=== PATIENT | male | born 1965 | race American Indian/Alaskan Native ===

== ENCOUNTER 2019-01-01 00:41 | Inpatient (IN) | payer OTHER ==
[2019-01-01] MEDS ORDERED: NACL 0.9% 1000 ML 1,000 ML IV ONE ×2 (01:27→03:20)
--- NOTE | 2019-01-01 01:42 | Emergency Department Report ---
ED Altered Mental Status HPI - General Chief Complaint: Altered Mental Status Stated Complaint: AMS Time Seen by Provider: 01/01/19 01:10 Source: EMS Mode of arrival: Stretcher Limitations: Altered Mental Status - History of Present Illness Initial Comments: 53-year-old male with a past medical history of hypertension presents to the hospital with complaints of alteration in mental status. Patient lives in a skilled nursing. Patient states he does not know why he is here. He remembers going to the store and walking back to the skilled nursing. The next thing he remembers is being in the ambulance. EMS reports that patient was confused and altered with improved somewhat in route. Upon arrival patient is oriented to self but states that year is 2017, month is May or June, and he is 45 years old. He does correctly answer that he is at [facility] and that his year is 1964. Patient denies any pain. He denies substance abuse. He states he just alcohol on occasion of last use last night. He denies daily alcohol use. - Related Data Allergies Allergy/AdvReac Type Severity Reaction Status Date / Time No Known Allergies Allergy Verified 01/01/19 03:32 ED Review of Systems ROS: Stated complaint: AMS Other details as noted in HPI Comment: All other systems reviewed and negative ED Past Medical Hx - Past Medical History Previous Medical History?: Yes Hx Hypertension: Yes - Surgical History Past Surgical History?: No - Social History Smoking Status: Current Every Day Smoker Substance Use Type: Alcohol ED Physical Exam - General Limitations: Altered Mental Status - Other Other exam information: General: No limitations, patient is alert in no acute distress Head exam: Atraumatic, normocephalic Eyes exam: Normal appearance, pupils equal reactive to light, extraocular movements intact ENT: Moist mucous membrane Neck exam: Normal inspection, full range of motion, no meningismus nontender Respiratory exam: Clear to auscultation bilateral, no wheezes, rales, crackles Cardiovascular: Tachycardic regular rhythm Abdomen: Soft, nondistended, and nontender, with normal bowel sounds, no rebo und, or guarding Extremity: Full range of motion normal inspection no deformity Back: Normal Inspection, full range of motion, no tenderness Neurologic: Alert, oriented x2, cranial nerves intact, no motor or sensory deficit, [id number]/intact by mild intention tremor noted. Psychiatric: normal affect, normal mood Skin: Warm, dry, intact ED Course Vital Signs 01/01/19 01/01/19 01:04 03:38 Temperature 97.4 F L Pulse Rate 128 H Respiratory 18 20 Rate Blood Pressure 124/80 O2 Sat by Pulse 98 98 Oximetry - Lab Data Result diagrams: 01/01/19 01:20 01/01/19 01:14 Lab Results 01/01/19 01/01/19 01/01/19 Range/Units 01:14 01:20 01:20 WBC (4.5-11.0) K/mm3 RBC (3.65-5.03) M/mm3 Hgb (11.8-15.2) gm/dl Hct (35.5-45.6) % MCV (84-94) fl MCH (28-32) pg MCHC (32-34) % RDW (13.2-15.2) % Plt Count (140-440) K/mm3 Lymph % (Auto) (13.4-35.0) % [place] % (Auto) (0.0-7.3) % Eos % (Auto) (0.0-4.3) % Baso % (Auto) (0.0-1.8) % Lymph # (1.2-5.4) K/mm3 [place] # (0.0-0.8) K/mm3 Eos # (0.0-0.4) K/mm3 Baso # (0.0-0.1) K/mm3 Seg Neutrophils % (40.0-70.0) % Seg Neutrophils # (1.8-7.7) K/mm3 PT 14.3 (12.2-14.9) Sec. INR 1.05 (0.87-1.13) APTT 22.7 L (24.2-36.6) Sec. Sodium 134 L (137-145) mmol/L Potassium 2.8 L* (3.6-5.0) mmol/L Chloride 93.4 L (98-107) mmol/L Carbon Dioxide 18 L (22-30) mmol/L Anion Gap 25 mmol/L BUN 10 (9-20) mg/dL Creatinine 1.3 (0.8-1.5) mg/dL Estimated GFR > 60 ml/min BUN/Creatinine Ratio 8 % Glucose 141 H (75-100) mg/dL Calcium 6.5 L (8.4-10.2) mg/dL Magnesium (1.7-2.3) mg/dL Total Bilirubin 0.60 (0.1-1.2) mg/dL AST 36 (5-40) units/L ALT 15 (7-56) units/L Alkaline Phosphatase 50 (35-129) units/L Total Creatine Kinase (55-170) units/L CK-MB (CK-2) (0.0-4.0) ng/mL CK-MB (CK-2) Rel Index (0-4) Troponin T (0.00-0.029) ng/mL Total Protein 7.2 (6.3-8.2) g/dL Albumin 4.4 (3.9-5) g/dL Albumin/Globulin Ratio 1.6 % TSH 3.010 (0.270-4.200) mlU/mL Free T4 1.62 H (0.76-1.46) ng/dL Urine Color (Yellow) Urine Turbidity (Clear) Urine pH (5.0-7.0) Ur Specific [place] (1.003-1.030) Urine Protein (Negative) mg/dL Urine Glucose (UA) (Negative) mg/dL Urine Ketones (Negative) mg/dL Urine Blood (Negative) Urine Nitrite (Negative) Urine Bilirubin (Negative) Urine Urobilinogen (<2.0) mg/dL Ur Leukocyte Esterase (Negative) Urine WBC (Auto) (0.0-6.0) /HPF Urine RBC (Auto) (0.0-6.0) /HPF U Epithel Cells (Auto) (0-13.0) /HPF Hyaline Casts /LPF Urine Mucus /HPF Salicylates (2.8-20.0) mg/dL Urine Opiates Screen Urine Methadone Screen Acetaminophen (10.0-30.0) ug/mL Ur Barbiturates Screen Ur Phencyclidine Scrn Ur Amphetamines Screen U Benzodiazepines Scrn Urine Cocaine Screen U Marijuana (THC) Screen Drugs of Abuse Note Plasma/Serum Alcohol (0-0.07) % 01/01/19 01/01/19 01/01/19 Range/Units 01:20 01:20 01:20 WBC (4.5-11.0) K/mm3 RBC (3.65-5.03) M/mm3 Hgb (11.8-15.2) gm/dl Hct (35.5-45.6) % MCV (84-94) fl MCH (28-32) pg MCHC (32-34) % RDW (13.2-15.2) % Plt Count (140-440) K/mm3 Lymph % (Auto) (13.4-35.0) % [place] % (Auto) (0.0-7.3) % Eos % (Auto) (0.0-4.3) % Baso % (Auto) (0.0-1.8) % Lymph # (1.2-5.4) K/mm3 [place] # (0.0-0.8) K/mm3 Eos # (0.0-0.4) K/mm3 Baso # (0.0-0.1) K/mm3 Seg Neutrophils % (40.0-70.0) % Seg Neutrophils # (1.8-7.7) K/mm3 PT (12.2-14.9) Sec. INR (0.87-1.13) APTT (24.2-36.6) Sec. Sodium (137-145) mmol/L Potassium (3.6-5.0) mmol/L Chloride (98-107) mmol/L Carbon Dioxide (22-30) mmol/L Anion Gap mmol/L BUN (9-20) mg/dL Creatinine (0.8-1.5) mg/dL Estimated GFR ml/min BUN/Creatinine Ratio % Glucose (75-100) mg/dL Calcium (8.4-10.2) mg/dL Magnesium (1.7-2.3) mg/dL Total Bilirubin (0.1-1.2) mg/dL AST (5-40) units/L ALT (7-56) units/L Alkaline Phosphatase (35-129) units/L Total Creatine Kinase (55-170) units/L CK-MB (CK-2) (0.0-4.0) ng/mL CK-MB (CK-2) Rel Index (0-4) Troponin T (0.00-0.029) ng/mL Total Protein (6.3-8.2) g/dL Albumin (3.9-5) g/dL Albumin/Globulin Ratio % TSH (0.270-4.200) mlU/mL Free T4 (0.76-1.46) ng/dL Urine Color (Yellow) Urine Turbidity (Clear) Urine pH (5.0-7.0) Ur Specific [place] (1.003-1.030) Urine Protein (Negative) mg/dL Urine Glucose (UA) (Negative) mg/dL Urine Ketones (Negative) mg/dL Urine Blood (Negative) Urine Nitrite (Negative) Urine Bilirubin (Negative) Urine Urobilinogen (<2.0) mg/dL Ur Leukocyte Esterase (Negative) Urine WBC (Auto) (0.0-6.0) /HPF Urine RBC (Auto) (0.0-6.0) /HPF U Epithel Cells (Auto) (0-13.0) /HPF Hyaline Casts /LPF Urine Mucus /HPF Salicylates < 0.3 L (2.8-20.0) mg/dL Urine Opiates Screen Urine Methadone Screen Acetaminophen < 5.0 L (10.0-30.0) ug/mL Ur Barbiturates Screen Ur Phencyclidine Scrn Ur Amphetamines Screen U Benzodiazepines Scrn Urine Cocaine Screen U Marijuana (THC) Screen Drugs of Abuse Note Plasma/Serum Alcohol < 0.01 (0-0.07) % 01/01/19 01/01/19 01/01/19 Range/Units 01:20 01:20 01:20 WBC 7.2 (4.5-11.0) K/mm3 RBC 3.51 L (3.65-5.03) M/mm3 Hgb 12.5 (11.8-15.2) gm/dl Hct 36.1 (35.5-45.6) % MCV 103 H (84-94) fl MCH 36 H (28-32) pg MCHC 35 H (32-34) % RDW 14.2 (13.2-15.2) % Plt Count 183 (140-440) K/mm3 Lymph % (Auto) 25.4 (13.4-35.0) % [place] % (Auto) 7.0 (0.0-7.3) % Eos % (Auto) 3.4 (0.0-4.3) % Baso % (Auto) 0.3 (0.0-1.8) % Lymph # 1.8 (1.2-5.4) K/mm3 [place] # 0.5 (0.0-0.8) K/mm3 Eos # 0.2 (0.0-0.4) K/mm3 Baso # 0.0 (0.0-0.1) K/mm3 Seg Neutrophils % 63.9 (40.0-70.0) % Seg Neutrophils # 4.6 (1.8-7.7) K/mm3 PT (12.2-14.9) Sec. INR (0.87-1.13) APTT (24.2-36.6) Sec. Sodium (137-145) mmol/L Potassium (3.6-5.0) mmol/L Chloride (98-107) mmol/L Carbon Dioxide (22-30) mmol/L Anion Gap mmol/L BUN (9-20) mg/dL Creatinine (0.8-1.5) mg/dL Estimated GFR ml/min BUN/Creatinine Ratio % Glucose (75-100) mg/dL Calcium (8.4-10.2) mg/dL Magnesium 0.40 L* (1.7-2.3) mg/dL Total Bilirubin (0.1-1.2) mg/dL AST (5-40) units/L ALT (7-56) units/L Alkaline Phosphatase (35-129) units/L Total Creatine Kinase 413 H (55-170) units/L CK-MB (CK-2) 2.9 (0.0-4.0) ng/mL CK-MB (CK-2) Rel Index 0.7 (0-4) Troponin T < 0.010 (0.00-0.029) ng/mL Total Protein (6.3-8.2) g/dL Albumin (3.9-5) g/dL Albumin/Globulin Ratio % TSH (0.270-4.200) mlU/mL Free T4 (0.76-1.46) ng/dL Urine Color (Yellow) Urine Turbidity (Clear) Urine pH (5.0-7.0) Ur Specific [place] (1.003-1.030) Urine Protein (Negative) mg/dL Urine Glucose (UA) (Negative) mg/dL Urine Ketones (Negative) mg/dL Urine Blood (Negative) Urine Nitrite (Negative) Urine Bilirubin (Negative) Urine Urobilinogen (<2.0) mg/dL Ur Leukocyte Esterase (Negative) Urine WBC (Auto) (0.0-6.0) /HPF Urine RBC (Auto) (0.0-6.0) /HPF U Epithel Cells (Auto) (0-13.0) /HPF Hyaline Casts /LPF Urine Mucus /HPF Salicylates (2.8-20.0) mg/dL Urine Opiates Screen Urine Methadone Screen Acetaminophen (10.0-30.0) ug/mL Ur Barbiturates Screen Ur Phencyclidine Scrn Ur Amphetamines Screen U Benzodiazepines Scrn Urine Cocaine Screen U Marijuana (THC) Screen Drugs of Abuse Note Plasma/Serum Alcohol (0-0.07) % 01/01/19 01/01/19 Range/Units 02:30 02:30 WBC (4.5-11.0) K/mm3 RBC (3.65-5.03) M/mm3 Hgb (11.8-15.2) gm/dl Hct (35.5-45.6) % MCV (84-94) fl MCH (28-32) pg MCHC (32-34) % RDW (13.2-15.2) % Plt Count (140-440) K/mm3 Lymph % (Auto) (13.4-35.0) % [place] % (Auto) (0.0-7.3) % Eos % (Auto) (0.0-4.3) % Baso % (Auto) (0.0-1.8) % Lymph # (1.2-5.4) K/mm3 [place] # (0.0-0.8) K/mm3 Eos # (0.0-0.4) K/mm3 Baso # (0.0-0.1) K/mm3 Seg Neutrophils % (40.0-70.0) % Seg Neutrophils # (1.8-7.7) K/mm3 PT (12.2-14.9) Sec. INR (0.87-1.13) APTT (24.2-36.6) Sec. Sodium (137-145) mmol/L Potassium (3.6-5.0) mmol/L Chloride (98-107) mmol/L Carbon Dioxide (22-30) mmol/L Anion Gap mmol/L BUN (9-20) mg/dL Creatinine (0.8-1.5) mg/dL Estimated GFR ml/min BUN/Creatinine Ratio % Glucose (75-100) mg/dL Calcium (8.4-10.2) mg/dL Magnesium (1.7-2.3) mg/dL Total Bilirubin (0.1-1.2) mg/dL AST (5-40) units/L ALT (7-56) units/L Alkaline Phosphatase (35-129) units/L Total Creatine Kinase (55-170) units/L CK-MB (CK-2) (0.0-4.0) ng/mL CK-MB (CK-2) Rel Index (0-4) Troponin T (0.00-0.029) ng/mL Total Protein (6.3-8.2) g/dL Albumin (3.9-5) g/dL Albumin/Globulin Ratio % TSH (0.270-4.200) mlU/mL Free T4 (0.76-1.46) ng/dL Urine Color Yellow (Yellow) Urine Turbidity Slightly-cloudy (Clear) Urine pH 5.0 (5.0-7.0) Ur Specific [place] 1.025 (1.003-1.030) Urine Protein 100 mg/dl (Negative) mg/dL Urine Glucose (UA) Neg (Negative) mg/dL Urine Ketones 20 (Negative) mg/dL Urine Blood Sm (Negative) Urine Nitrite Neg (Negative) Urine Bilirubin Neg (Negative) Urine Urobilinogen < 2.0 (<2.0) mg/dL Ur Leukocyte Esterase Tr (Negative) Urine WBC (Auto) 11.0 H (0.0-6.0) /HPF Urine RBC (Auto) 2.0 (0.0-6.0) /HPF U Epithel Cells (Auto) 3.0 (0-13.0) /HPF Hyaline Casts 29 /LPF Urine Mucus Few /HPF Salicylates (2.8-20.0) mg/dL Urine Opiates Screen Presumptive negative Urine Methadone Screen Presumptive negative Acetaminophen (10.0-30.0) ug/mL Ur Barbiturates Screen Presumptive negative Ur Phencyclidine Scrn Presumptive negative Ur Amphetamines Screen Presumptive negative U Benzodiazepines Scrn Presumptive negative Urine Cocaine Screen Presumptive negative U Marijuana (THC) Screen Presumptive positive Drugs of Abuse Note Disclamer Plasma/Serum Alcohol (0-0.07) % - EKG Data -: EKG Interpreted by Me EKG shows normal: sinus rhythm, axis (qrs 68), QRS complexes (qrsd 80), ST-T waves (no stemi, inf and lat st depression) Rate: tachycardia (113) When compared to previous EKG there are: previous EKG unavailable - Radiology Data Radiology results: report reviewed PROCEDURE: CT HEAD/BRAIN WO CON TECHNIQUE: Computerized tomography of the head was performed without contrast material. CT DOSE LENGTH PRODUCT: mGycm HISTORY: Altered Mental Status COMPARISONS: None . FINDINGS: Skull and scalp: Normal . Paranasal sinuses: Normal . Ventricles and subarachnoid spaces: Normal . Cerebrum: No evidence of hemorrhage, acute infarction or mass . Cerebellum and brainstem: No evidence of hemorrhage, acute infarction or mass . Vasculature: Normal . IMPRESSION: Normal Examination . - Medical Decision Making I asked patient multiple times if he drinks alcohol every day which denies however I highly suspect the patient is an alcoholic as evident by tremors, persistent tachycardia, and significant magnesium and potassium deficiencies. Low calcium as well with normal albumin. IV calcium gluconate ordered. Patient placed on CIWA protocol. Thiamine and folate provided additional to IV hydration with normal saline. Due to significant electrolyte abnormalities and alteration in mental status patient will be admitted to the hospital for additional treatment. When pt got up to ambulate he was extremely tremulous as per nurse. Ativan provided for high score on the CIWA protocol. - Differential Diagnosis encephalopathy, intracranial hemorrhage, CVA Critical Care Time: No Critical care attestation.: If time is entered above; I have spent that time in minutes in the direct care of this critically ill patient, excluding procedure time. ED Disposition Clinical Impression: Hypomagnesemia, Hypokalemia, Intention tremor, Alcohol use, Acute alteration in mental status, Hypocalcemia Disposition: OP ADMIT IP TO THIS HOSP Is pt being admited?: Yes Condition: Stable Time of Disposition: 03:51 (Dr Hopkins/hosp)
[2019-01-01 01:48] LABS: INR 1.05 (0.87-1.13); Partial Thromboplastin Time 22.7 Sec. (24.2-36.6)
[2019-01-01 01:57] LABS: Creatine Kinase MB 2.9 ng/mL (0.0-4.0)
[2019-01-01 01:58] LABS: Alanine Aminotransferase 15 units/L (7-56); Albumin 4.4 g/dL (3.9-5); BUN/Creatinine Ratio 8; Blood Urea Nitrogen 10 mg/dL (9-20); Calcium 6.5 mg/dL (8.4-10.2); Hemolysis Index 6
[2019-01-01 02:08] LABS: Basophils % (Auto) 0.3 % (0.0-1.8); Eosinophils # (Auto) 0.2 K/mm3 (0.0-0.4); Eosinophils % (Auto) 3.4 % (0.0-4.3); Hematocrit 36.1 % (35.5-45.6); Hemoglobin 12.5 gm/dl (11.8-15.2); Lymphocytes # (Auto) 1.8 K/mm3 (1.2-5.4); Lymphocytes % (Auto) 25.4 % (13.4-35.0); Mean Corpuscular HGB Conc 35 % (32-34); Mean Corpuscular Volume 103 fl (84-94); Monocytes # (Auto) 0.5 K/mm3 (0.0-0.8); Platelet Count 183 K/mm3 (140-440); Red Blood Count 3.51 M/mm3 (3.65-5.03); Red Cell Distribution Width 14.2 % (13.2-15.2)
[2019-01-01 02:22] LABS: Free T4 (Free Thyroxine) 1.62 ng/dL (0.76-1.46)
[2019-01-01] MEDS ORDERED: MAGNESIUM SULFATE 2GM/50ML 2 GM/50 ML BAG IV ONE (02:34)
[2019-01-01] MEDS ORDERED: K-DUR PO ONE (02:34)
[2019-01-01] MEDS ORDERED: VITAMIN B-1 PO ONE (02:37)
[2019-01-01] MEDS ORDERED: ATIVAN IV PRN ×2 (02:38)
[2019-01-01] MEDS ORDERED: FOLVITE PO ONE (02:38)
[2019-01-01 03:24] LABS: Bilirubin,Urine NEG (Negative); Blood,Urine SM (Negative); Color,Urine Yellow (Yellow); Hyaline Casts,Urine 29 /LPF; Mucus,Urine FEW /HPF; Urobilinogen,Urine < 2.0 mg/dL (<2.0)
[2019-01-01 03:28] LABS: Amphetamine Screen,Urine PRESUMPTIVE NEGATIVE; Benzodiazepines Screen,Urine PRESUMPTIVE NEGATIVE; Cocaine Screen,Urine PRESUMPTIVE NEGATIVE; Methadone Screen,Urine PRESUMPTIVE NEGATIVE; Opiate Screen,Urine PRESUMPTIVE NEGATIVE
[2019-01-01] MEDS ORDERED: CALCIUM GLUCONATE 1,000 MG in NACL 0.9% 100 ML IV ONE (03:31)
[2019-01-01 03:40] LABS: Cannabinoid Screen,Urine PRESUMPTIVE POSITIVE
--- NOTE | 2019-01-01 03:46 | Cat Scan Report ---
PROCEDURE: CT HEAD/BRAIN WO CON TECHNIQUE: Computerized tomography of the head was performed without contrast material. CT DOSE LENGTH PRODUCT: mGycm HISTORY: Altered Mental Status COMPARISONS: None . FINDINGS: Skull and scalp: Normal . Paranasal sinuses: Normal . Ventricles and subarachnoid spaces: Normal . Cerebrum: No evidence of hemorrhage, acute infarction or mass . Cerebellum and brainstem: No evidence of hemorrhage, acute infarction or mass . Vasculature: Normal . IMPRESSION: Normal Examination . This document is electronically signed by Andrew Toledo MD., January 01 2019 03:44:36 AM ET
[2019-01-01] MEDS ORDERED: SODIUM CHLORIDE FLUSH SYRINGE 10 ML IV PRN (04:24)
[2019-01-01] MEDS ORDERED: MAGNESIUM SULFATE 1 GM in NACL 0.9% 50 ML IV PRN (04:24)
[2019-01-01] MEDS ORDERED: TYLENOL PO PRN (04:24)
[2019-01-01] MEDS ORDERED: ALUM-MAG HYDROX-SIMETH 200-200-20MG/5ML PO PRN (04:24)
[2019-01-01] MEDS ORDERED: MAGNESIUM SULFATE 4GM/100ML 4 GM/100 ML BAG IV PRN (04:24)
[2019-01-01] MEDS ORDERED: MAGNESIUM SULFATE 2GM/50ML 2 GM/50 ML BAG IV PRN (04:24)
[2019-01-01] MEDS ORDERED: ZOFRAN IV PRN (04:24)
--- NOTE | 2019-01-01 04:24 | History and Physical Report ---
History of Present Illness Date of examination: 01/01/19 History of present illness: 53-year-old male with a past medical history of hypertension presents to the hospital with complaints of alteration in mental status. Patient lives in a half-way. At the time of my evaluation the patient was very somnolent and difficult to arouse minimally responsive not answering questions and following commands most of the history is obtained from review of his records and as per the ER physician's report. Patient states he does not know why he is here. He remembers going to the store and walking back to the half-way. The next thing he remembers is being in the ambulance. EMS reports that patient was confused and altered with improved somewhat in route. Upon arrival patient is oriented to self but states that year is 2017, month is May or June, and he is 45 years old. He does correctly answer that he is at [facility] and that his year is 1964. Patient denies any pain. He denies substance abuse. He states he just alcohol on occasion of last use last night. He denies daily alcohol use. Previous Medical History?: Yes Hx Hypertension: Yes - Surgical History Past Surgical History?: No - Social History Smoking Status: Current Every Day Smoker Substance Use Type: Alcohol Past History Social history: other (lives in a half-way) Medications and Allergies Allergies Allergy/AdvReac Type Severity Reaction Status Date / Time No Known Allergies Allergy Verified 01/01/19 03:32 Active Meds: Active Medications Sodium Chloride (Nacl 0.9% 1000 Ml) 1,000 mls @ 999 mls/hr IV BOLUS ONE Stop: 01/01/19 04:20 Last Admin: 01/01/19 04:16 Dose: 999 mls/hr Documented by: Lorazepam (Ativan) 2 mg IV Q1HR PRN PRN Reason: CIWA-Ar 8-15 Last Admin: 01/01/19 03:15 Dose: 2 mg Documented by: Lorazepam (Ativan) 4 mg IV Q1HR PRN PRN Reason: CIWA-Ar 16-25 Review of Systems ROS unobtainable: due to mental status Exam - Physical Exam Narrative exam: General: Very somnolent and difficult to arouse, confused delirious but in no acute distress Head exam: Atraumatic, normocephalic Eyes exam: Normal appearance, pupils equal reactive to light, extraocular movements intact ENT: Moist mucous membrane Neck exam: Normal inspection, full range of motion, no meningismus nontender Respiratory exam: Clear to auscultation bilateral, no wheezes, rales, crackles Cardiovascular: Tachycardic regular rhythm Abdomen: Soft, nondistended, and nontender, with normal bowel sounds, no rebound, or guarding Extremity: Full range of motion normal inspection no deformity, generalized trembling Back: Normal Inspection, full range of motion, no tenderness Neurologic: Limited exam due to her mental status but appears to be nonfocal moving all 4 extremities equally bilaterally , abnormal [id number], mild intention tremor noted. Psychiatric: Unable to assess due to altered mental status Skin: Warm, dry, intact - Constitutional Vitals: Temp Pulse Resp BP Pulse Ox 97.4 F L 128 H 20 124/80 98 01/01/19 01:04 01/01/19 01:04 01/01/19 03:38 01/01/19 01:04 01/01/19 03:38 Results - Labs CBC & Chem 7: 01/01/19 01:20 01/01/19 01:14 Labs: Laboratory Last Values WBC 7.2 K/mm3 (4.5-11.0) 01/01/19 01:20 RBC 3.51 M/mm3 (3.65-5.03) L 01/01/19 01:20 Hgb 12.5 gm/dl (11.8-15.2) 01/01/19 01:20 Hct 36.1 % (35.5-45.6) 01/01/19 01:20 MCV 103 fl (84-94) H 01/01/19 01:20 MCH 36 pg (28-32) H 01/01/19 01:20 MCHC 35 % (32-34) H 01/01/19 01:20 RDW 14.2 % (13.2-15.2) 01/01/19 01:20 Plt Count 183 K/mm3 (140-440) 01/01/19 01:20 Lymph % (Auto) 25.4 % (13.4-35.0) 01/01/19 01:20 [place] % (Auto) 7.0 % (0.0-7.3) 01/01/19 01:20 Eos % (Auto) 3.4 % (0.0-4.3) 01/01/19 01:20 Baso % (Auto) 0.3 % (0.0-1.8) 01/01/19 01:20 Lymph # 1.8 K/mm3 (1.2-5.4) 01/01/19 01:20 [place] # 0.5 K/mm3 (0.0-0.8) 01/01/19 01:20 Eos # 0.2 K/mm3 (0.0-0.4) 01/01/19 01:20 Baso # 0.0 K/mm3 (0.0-0.1) 01/01/19 01:20 Seg Neutrophils % 63.9 % (40.0-70.0) 01/01/19 01:20 Seg Neutrophils # 4.6 K/mm3 (1.8-7.7) 01/01/19 01:20 PT 14.3 Sec. (12.2-14.9) 01/01/19 01:20 INR 1.05 (0.87-1.13) 01/01/19 01:20 APTT 22.7 Sec. (24.2-36.6) L 01/01/19 01:20 Sodium 134 mmol/L (137-145) L 01/01/19 01:14 Potassium 2.8 mmol/L (3.6-5.0) L* 01/01/19 01:14 Chloride 93.4 mmol/L (98-107) L 01/01/19 01:14 Carbon Dioxide 18 mmol/L (22-30) L 01/01/19 01:14 Anion Gap 25 mmol/L 01/01/19 01:14 BUN 10 mg/dL (9-20) 01/01/19 01:14 Creatinine 1.3 mg/dL (0.8-1.5) 01/01/19 01:14 Estimated GFR > 60 ml/min 01/01/19 01:14 BUN/Creatinine Ratio 8 % 01/01/19 01:14 Glucose 141 mg/dL (75-100) H 01/01/19 01:14 Calcium 6.5 mg/dL (8.4-10.2) L 01/01/19 01:14 Magnesium 0.40 mg/dL (1.7-2.3) L* 01/01/19 01:20 Total Bilirubin 0.60 mg/dL (0.1-1.2) 01/01/19 01:14 AST 36 units/L (5-40) 01/01/19 01:14 ALT 15 units/L (7-56) 01/01/19 01:14 Alkaline Phosphatase 50 units/L (35-129) 01/01/19 01:14 Total Creatine Kinase 413 units/L (55-170) H 01/01/19 01:20 CK-MB (CK-2) 2.9 ng/mL (0.0-4.0) 01/01/19 01:20 CK-MB (CK-2) Rel Index 0.7 (0-4) 01/01/19 01:20 Troponin T < 0.010 ng/mL (0.00-0.029) 01/01/19 01:20 Total Protein 7.2 g/dL (6.3-8.2) 01/01/19 01:14 Albumin 4.4 g/dL (3.9-5) 01/01/19 01:14 Albumin/Globulin Ratio 1.6 % 01/01/19 01:14 TSH 3.010 mlU/mL (0.270-4.200) 01/01/19 01:20 Free T4 1.62 ng/dL (0.76-1.46) H 01/01/19 01:20 Urine Color Yellow (Yellow) 01/01/19 02:30 Urine Turbidity Slightly-cloudy (Clear) 01/01/19 02:30 Urine pH 5.0 (5.0-7.0) 01/01/19 02:30 Ur Specific [place] 1.025 (1.003-1.030) 01/01/19 02:30 Urine Protein 100 mg/dl mg/dL (Negative) 01/01/19 02:30 Urine Glucose (UA) Neg mg/dL (Negative) 01/01/19 02:30 Urine Ketones 20 mg/dL (Negative) 01/01/19 02:30 Urine Blood Sm (Negative) 01/01/19 02:30 Urine Nitrite Neg (Negative) 01/01/19 02:30 Urine Bilirubin Neg (Negative) 01/01/19 02:30 Urine Urobilinogen < 2.0 mg/dL (<2.0) 01/01/19 02:30 Ur Leukocyte Esterase Tr (Negative) 01/01/19 02:30 Urine WBC (Auto) 11.0 /HPF (0.0-6.0) H 01/01/19 02:30 Urine RBC (Auto) 2.0 /HPF (0.0-6.0) 01/01/19 02:30 U Epithel Cells (Auto) 3.0 /HPF (0-13.0) 01/01/19 02:30 Hyaline Casts 29 /LPF 01/01/19 02:30 Urine Mucus Few /HPF 01/01/19 02:30 Salicylates < 0.3 mg/dL (2.8-20.0) L 01/01/19 01:20 Urine Opiates Screen Presumptive negative 01/01/19 02:30 Urine Methadone Screen Presumptive negative 01/01/19 02:30 Acetaminophen < 5.0 ug/mL (10.0-30.0) L 01/01/19 01:20 Ur Barbiturates Screen Presumptive negative 01/01/19 02:30 Ur Phencyclidine Scrn Presumptive negative 01/01/19 02:30 Ur Amphetamines Screen Presumptive negative 01/01/19 02:30 U Benzodiazepines Scrn Presumptive negative 01/01/19 02:30 Urine Cocaine Screen Presumptive negative 01/01/19 02:30 U Marijuana (THC) Screen Presumptive positive 01/01/19 02:30 Drugs of Abuse Note Disclamer 01/01/19 02:30 Plasma/Serum Alcohol < 0.01 % (0-0.07) 01/01/19 01:20 - Imaging and Cardiology Imaging and Cardiology: EKG shows normal: sinus rhythm, axis (qrs 68), QRS complexes (qrsd 80), ST-T w aves (no stemi, inf and lat st depression) Rate: tachycardia (113) CT HEAD/BRAIN WO CON - Normal Examination Assessment and Plan Assessment and plan: Assessment and plan: * Altered mental status likely toxic versus metabolic encephalopathy. Possible alcohol withdrawal. We'll also rule out CVA * Alcohol withdrawal DTs * Hypomagnesemia * Hypokalemia * Hypertension Plan: Admit to medical floor with telemetry WA protocol. [place] benzodiazepines MRI brain without contrast to rule out acute CVA His mental status does not improve in the next 2448 was or if patient starts spiking fever or if her WBC count started rising may consider LP Continue supportive management with IV fluids and banana bag Monitor vital signs closely The blood pressure is currently controlled without any medications Monitor CBC and electrolytes Replace electrolytes as per protocol DVT and GI prophylaxis as ordered monitor and follow the patient closely Advance Directives: No VTE prophylaxis?: Chemical, Mechanical Plan of care discussed with patient/family: No
[2019-01-01] MEDS ORDERED: VITAMIN B-1 100 MG, FOLVITE 1 MG, INFUVITE 10 ML in NACL 0.9% 1000 ML 1,000 ML IV ONE (04:33)
[2019-01-01] MEDS: PEPCID IV SCH ×2 (10:44→21:22)
[2019-01-01] MEDS: LOVENOX SUB-Q SCH (10:44)
[2019-01-01] MEDS: SODIUM CHLORIDE FLUSH SYRINGE 10 ML IV SCH (10:45)
--- NOTE | 2019-01-01 11:12 | Event Note ---
Date: 01/01/19 patient seen and examined 53-year-old male with a past medical history of hypertension presents to the hospital with complaints of alteration in mental status. cont current mx and plan dictated in H/p
[2019-01-01] MEDS ORDERED: MAGNESIUM SULFATE 1 GM in NACL 0.9% 50 ML IV ONE (13:00)
[2019-01-01] MEDS: D5NS 1,000 ML IV SCH ×2 (14:03→22:21)
[2019-01-01] MEDS ORDERED: IMODIUM PO PRN (18:29)
[2019-01-01] MEDS ORDERED: IBUPROFEN PO PRN (19:24)
[2019-01-01] MEDS ORDERED: THIAMINE PO SCH (19:30)
[2019-01-01] MEDS ORDERED: NON-FORMULARY (Losartan [Cozaar] 100 MG) PO SCH (19:30)
[2019-01-01] MEDS: COZAAR PO SCH (21:20)
[2019-01-02] MEDS: SODIUM CHLORIDE FLUSH SYRINGE 10 ML IV SCH ×2 (02:46→09:56)
[2019-01-02 05:22] LABS: Basophils % (Auto) 0.6 % (0.0-1.8); Eosinophils # (Auto) 0.3 K/mm3 (0.0-0.4); Eosinophils % (Auto) 5.1 % (0.0-4.3); Hematocrit 29.5 % (35.5-45.6); Hemoglobin 10.4 gm/dl (11.8-15.2); Lymphocytes % (Auto) 33.4 % (13.4-35.0); Mean Corpuscular HGB Conc 35 % (32-34); Mean Corpuscular Volume 103 fl (84-94); Monocytes # (Auto) 0.4 K/mm3 (0.0-0.8); Monocytes % (Auto) 7.1 % (0.0-7.3); Platelet Count 127 K/mm3 (140-440); Red Blood Count 2.85 M/mm3 (3.65-5.03); Red Cell Distribution Width 14.3 % (13.2-15.2)
[2019-01-02] MEDS: D5NS 1,000 ML IV SCH ×2 (05:35→12:23)
[2019-01-02 05:44] LABS: Alanine Aminotransferase 16 units/L (7-56); Albumin 3.4 g/dL (3.9-5); BUN/Creatinine Ratio 9; Blood Urea Nitrogen 8 mg/dL (9-20); Hemolysis Index 5
[2019-01-02] MEDS: PEPCID IV SCH (09:56)
[2019-01-02] MEDS: COZAAR PO SCH (09:56)
[2019-01-02] MEDS: LOVENOX SUB-Q SCH (09:57)
[2019-01-02] MEDS ORDERED: VITAMIN B-1 PO SCH (10:00)
[2019-01-02] MEDS ORDERED: K-DUR PO ONE ×2 (11:47→16:38)
[2019-01-02] MEDS ORDERED: MAGNESIUM SULFATE 2GM/50ML 2 GM/50 ML BAG IV ONE ×2 (11:48→16:38)
--- NOTE | 2019-01-02 16:50 | Progress Note ---
Subjective Date of service: 01/02/19 Objective - Constitutional Vitals: Vital Signs - 12hr 01/02/19 01/02/19 01/02/19 05:09 05:19 09:51 Temperature 97.7 F Pulse Rate 95 H 86 Respiratory 18 Rate Blood Pressure 133/89 144/74 113/84 O2 Sat by Pulse 98 99 Oximetry 01/02/19 01/02/19 01/02/19 09:56 10:00 10:14 Temperature Pulse Rate Respiratory 24 Rate Blood Pressure 118/87 O2 Sat by Pulse 100 Oximetry 01/02/19 12:09 Temperature 97.9 F Pulse Rate 96 H Respiratory 18 Rate Blood Pressure 134/96 O2 Sat by Pulse 100 Oximetry General appearance: Present: no acute distress, well-nourished - EENT Eyes: PERRL, EOM intact ENT: hearing intact, clear oral mucosa Ears: bilateral: normal - Neck Neck: supple, normal ROM - Respiratory Respiratory effort: normal Respiratory: bilateral: CTA - Breasts Breasts: normal - Cardiovascular Rhythm: regular Heart Sounds: Present: S1 & S2. Absent: gallop, rub Extremities: pulses intact, No edema, normal color, Full ROM - Gastrointestinal General gastrointestinal: Present: soft, non-tender, non-distended, normal bowel sounds - Genitourinary Male genitourinary: normal - Integumentary Integumentary: clear, warm, dry - Musculoskeletal Musculoskeletal: 1, strength equal bilaterally - Neurologic Neurologic: moves all extremities - Psychiatric Psychiatric: memory intact, appropriate mood/affect, intact judgment & insight - Labs CBC & Chem 7: 01/02/19 04:42 01/02/19 04:42 Labs: Abnormal lab results 01/02/19 01/02/19 Range/Units 04:42 04:42 RBC 2.85 L (3.65-5.03) M/mm3 Hgb 10.4 L (11.8-15.2) gm/dl Hct 29.5 L D (35.5-45.6) % MCV 103 H (84-94) fl MCH 36 H (28-32) pg MCHC 35 H (32-34) % Plt Count 127 L (140-440) K/mm3 Eos % (Auto) 5.1 H (0.0-4.3) % Potassium 3.3 L (3.6-5.0) mmol/L Chloride 109.2 H (98-107) mmol/L Carbon Dioxide 21 L (22-30) mmol/L BUN 8 L (9-20) mg/dL Glucose 103 H (75-100) mg/dL Calcium 6.0 L (8.4-10.2) mg/dL Magnesium 1.10 L (1.7-2.3) mg/dL AST 43 H (5-40) units/L Total Protein 5.8 L (6.3-8.2) g/dL Albumin 3.4 L (3.9-5) g/dL
--- NOTE | 2019-01-02 16:54 | Discharge Summary ---
Providers - Providers Date of Admission: 01/01/19 04:24 Date of discharge: 01/02/19 Attending physician: ANA COOK 01/01/19 13:21 Physical Therapy Evaluation and Treat [CONS] Routine Comment: Reason For Exam: weakness Primary care physician: TANYA VAZQUEZ Hospitalization Condition: Stable Hospital course: EtOH withdrawal---Improved Denies excessive drinking Hypokalemia corrected Hypomagnesemia --corrected Disposition: DC-01 TO HOME OR SELFCARE Core Measure Documentation - Palliative Care Palliative Care/ Comfort Measures: Not Applicable - Core Measures Any of the following diagnoses?: none Exam - Constitutional Vitals: Temp Pulse Resp BP Pulse Ox 97.9 F 96 H 18 134/96 100 01/02/19 12:09 01/02/19 12:09 01/02/19 12:09 01/02/19 12:09 01/02/19 12:09 General appearance: Present: no acute distress, well-nourished - EENT Eyes: Present: PERRL ENT: hearing intact, clear oral mucosa - Neck Neck: Present: supple, normal ROM - Respiratory Respiratory effort: normal Respiratory: bilateral: CTA - Cardiovascular Heart rate: 78 Rhythm: regular Heart Sounds: Present: S1 & S2. Absent: rub, click - Extremities Extremities: no ischemia, pulses intact, pulses symmetrical, No edema Peripheral Pulses: within normal limits - Abdominal General gastrointestinal: Present: soft, non-tender, non-distended, normal bowel sounds Male genitourinary: Present: normal - Rectal Rectal Exam: deferred - Integumentary Integumentary: Present: clear, warm, dry - Musculoskeletal Musculoskeletal: gait normal, strength equal bilaterally - Psychiatric Psychiatric: appropriate mood/affect, intact judgment & insight - Neurologic Neurologic: CNII-XII intact, moves all extremities - Allied Health Allied health notes reviewed: nursing, case management Plan Activity: no restrictions Diet: low salt Follow up with: TANYA VAZQUEZ PA [Primary Care Provider] - 7 Days
[2019-01-02 17:14] VITALS: BP 140/92
== END 2019-01-02 20:00 | disposition home or self-care (01) | DRG 641 ==
LOC: ED 00:41 → 3A 04:24
PROVIDERS: ADMIT Internal Medicine Geriatric Medicine; ATTEND Internal Medicine
DX: E87.6 Hypokalemia (principal); F10.231 Alcohol dependence with withdrawal delirium; E83.42 Hypomagnesemia; I10 Essential (primary) hypertension; F17.200 Nicotine dependence, unspecified, uncomplicated; E83.51 Hypocalcemia
CPT/HCPCS: 36415; 70450; 80048; 80053; 80307; 80320; 81001; 82140; 82550; 82553; 83735; 84100; 84132; 84439; 84443; 84484; 85007; 85025; 85610; 85730; 87045; 93005; 93010; 99406; G0378; G0480; J0610; J1650; J2060; J3411; J3475; J7030; J7042

== ENCOUNTER 2019-01-22 17:22 | Emergency (ER) | payer OTHER ==
[2019-01-22 18:37] VITALS: BP 95/60
== END 2019-01-22 19:17 | disposition left against medical advice (07) ==
LOC: ED 17:22
DX: R41.0 Disorientation, unspecified (principal)
CPT/HCPCS: 99283